=== PATIENT | male | born 1945 | race Caucasian/White ===

== ENCOUNTER → 2024-09-18 | Outpatient (CLI) | payer MEDICARE, BC, SELFPAY ==
[2024-09-18 08:25] LABS: Basophils % (Auto) 1 % (0-2.5); Eosinophils # (Auto) 0.1 Thou/mm3 (0.0-0.5); Eosinophils % (Auto) 2 % (0-10); Hematocrit 37.8 % (41.0-53.0); Hemoglobin 12.8 g/dL (13.5-16.0); Immature Granulocytes % (Auto) 0 % (0-0); Immature Granulocytes Auto 0.01 Thou/mm3 (0.00-0.00); Lymphocytes % (Auto) 20 % (10-50); Mean Corpuscular HGB Conc 33.9 g/dl (31.0-37.0); Mean Corpuscular Volume 89 fL (80-100); Monocytes # (Auto) 0.4 Thou/mm3 (0.0-0.8); Monocytes % (Auto) 8 % (0-12); Neutrophils # (Auto) 3.5 Thou/mm3 (1.8-7.7); Neutrophils % (Auto) 69 % (37-80); Nucleated Red Blood Cell % 0 /100 WBC (0); Platelet Count 164 Thou/mm3 (140-440); Red Blood Count 4.26 Miln/mm3 (4.50-5.90)
[2024-09-18 08:44] LABS: Prostate Specific Antigen < 0.10 ng/mL (0-4.00)
[2024-09-18 09:01] LABS: Alanine Aminotransferase 16 U/L (10-49); Albumin, Serum 4.3 gm/dL (3.4-4.8); Alkaline Phosphatase 84 U/L (46-116); Anion Gap 8 (7-16); BUN/Creatinine Ratio 13 Ratio (12-20); Bilirubin,Total 0.9 mg/dL (0.3-1.2); Blood Urea Nitrogen 16 mg/dL (9-23); Calcium 9.4 mg/dL (8.3-10.6); Calcium (Corrected) 9.4 mg/dL (8.5-10.1); Chloride 109 mMol/L (98-107); Creatinine (Component) 1.2 mg/dL (0.6-1.3); Globulin 2.1 gm/dL (2.3-3.5); Glucose 157 mg/dL (74-106); Osmolality,Calculated 289 (275-295); Potassium 4.4 mMol/L (3.4-5.1); Sodium 143 mMol/L (136-145); Total Protein 6.4 gm/dL (5.7-8.2); eGFR > 60 See Note
[2024-09-18 09:10] LABS: Aspartate Amino Transferase 18 U/L (0-34)
== END | disposition home or self-care (01) ==
LOC: SCTO 07:50
PROVIDERS: PCP Internal Medicine; Referring Provider Internal Medicine Hematology & Oncology; Visit Provider Internal Medicine Hematology & Oncology
DX: D69.6 Thrombocytopenia, unspecified (principal); C61 Malignant neoplasm of prostate
CPT/HCPCS: 36415; 80053; 84153; 85025

== ENCOUNTER 2024-10-05 13:46 | Outpatient (RCR) | payer MEDICARE, BC, SELFPAY ==
--- NOTE | 2024-10-08 23:32 | CTCFLWUP_ITS ---
Patient: BOB GOLDMAN : 1945 Page 3 of 4 FOLLOW UP NOTE DATE OF SERVICE: 09/25/2024 NAME: BOB GOLDMAN ACCOUNT: [id number] : 1945 AGE: 79 INTERVAL HISTORY: ONCOLOGY HISTORY: DIAGNOSIS: Thrombocytopenia, unspecified [ICD10] D69.6; Malignant neoplasm of prostate [ICD10] C61 DATE OF DIAGNOSIS: STAGE/TNM: TREATMENT HISTORY: Care?Plan Start?Date Cycle Day Intent Lupron?22.5?mg?q?3?mon 04/06/2023 1 90 Palliative HISTORY OF PRESENT ILLNESS: Bob goldman is a 79-year-old male with history of localized [place] score 7 prostate cancer initially diagnosed in 2007. 05/28/2008?07/24/2008: Patient received 7200 cGy radiation to the prostate. Patient had adjuvant LHRH agonist therapy for about a year afterwards. 08/15/2018: Patient was found to have a PSA of 4.8. 07/11/2018: PSA 3.6 06/14/2018: PSA 3.8 08/15/2018: PSA 4.8 09/16/2018: Patient underwent robotic salvage radical prostatectomy and bilateral lymph node dissectio n. 11/01/2018: PSA 1.7 11/29/2018: PSA 0.7 12/05/2018: Patient was started on Xtandi. 12/20/2018: Lupron 22.5 mg IM. 03/09/2019: PSA less than 0.1. 06/13/2019: PSA less than 0.1 10/24/2019: PSA is less than 0.10. 02/14/2020: PSA less than 0.10 08/15/2020: PSA less than 0.10 02/14/2021: PSA less than 0.10. 02/18/2023: PSA less than 0.10. 04/02/2023: PSA less than 0.00. 04/16/2023: Bone scan?negative for metastatic disease to the bone. 09/27/2023: PSA less than 0.10. 12/20/2023: PSA less than 0.10. 12/26/2023:: Xtandi discontinued. 02/22/2024: Bone scan done 03/28/2024: PSA less than 0.10. OTHER MEDICAL HISTORY/CONDITIONS: FAMILY HISTORY: SOCIAL HISTORY: MEDICATIONS: 1. amlodipine - 5 mg 2. Citracal + D Slow Release - 600 mg-12.5 mcg (500 unit) 1 tab one tab po twice a day 3. docusate sodium - 50 mg Daily 4. Paradise-C - 2,000 Units Daily 5. multivitamin - 1 tab Daily 6. zolpidem - 12.5 mg 1 tab Every day before sleep Medications Last Reconciled by Angie Pantoja MA on 09/25/2024 ALLERGIES: No Known Drug Allergies REVIEW OF SYSTEMS: A complete 14-point review of systems was performed and is negative except as noted in interval histo ry. PHYSICAL EXAMINATION: VITAL SIGNS: Temperature?98.2, B/P?153/82, Oxygen?Saturation?95% Weight?167?lbs PAIN: 0 - No pain ECOG Performance Status: 0 - Asymptomatic and fully active GENERAL APPEARANCE: Appears well, in no apparent distress, appropriately interactive. HEENT: Normocephalic, no temporal wasting, normal conjunctiva, no scleral icterus, normal hearing, li ps without lesions, neck normal range of motion. CARDIOVASCULAR: Not assessed. PULMONARY: Normal respiratory effort, no respiratory distress or use of accessory muscles, speaking i n full sentences, no tachypnea. EXTREMITIES: No pedal edema or cyanosis. SKIN: Normal skin appearance. NEUROLOGIC: Alert and oriented x4. PSHYCHIATRIC: Appropriate affect, mood normal, behavior normal, intact thought and speech. LABORATORY DATA: I have personally reviewed and interpreted each of the patient?s relevant lab tests, abnormal finding s are below: Date 09/18/24 ??GLUCOSE,RANDOM?(mg/dL) 157?H ??BLOOD?UREA?NITROGEN?(mg/dL) 16 ??CREATININE?(mg/dL) 1.20 ??SODIUM?(mmol/L) 143 ??POTASSIUM?(mmol/L) 4.4 ??CHLORIDE?(mmol/L) 109?H ??CrCl?(CandG)?(ml/min) 54.51 ??AST/SGOT?(Unit/L) 18 ??ALT/SGPT?(Unit/L) 16 ??ALKALINE?PHOSPHATASE?(Unit/L) 84 ??BILIRUBIN,?TOTAL?(mg/dL) 0.9 ??PROTEIN?TOTAL?(gm/dl) 6.4 ??ALBUMIN,?SERUM?(gm/dl) 4.3 ??GLOBULIN?(gm/dl) 2.1?L ??ALBUMIN/GLOBULIN?RATIO 2.0 ??CALCIUM,?SERUM?(mg/dL) 9.4 ??CALCIUM?SERUM?(CORRECTED)?(mg/dL) 9.4 ASSESSMENT/PLAN: Mr. Goldman is clinically doing well without any complaints. Currently he is on single agent Lupron. T olerating Lupron very well without any significant side effects PSA has been steadily less than 0.10. Recent bone density test done on 02/22/2024 is negative for metastatic disease. 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 Surgical p athology sample showed positive margins as well as lymphovascular and perineural invasion patient als o had radiation to the prostate. I recommended discontinuing Lupron. I will see him back in clinic in 6 months with CBC, CMP as well as PSA done prior to the visit.. CBC CMP PSA RETURN TO CLINIC: RTC in 6 months BILLING AND COMPLIANCE: I reviewed external records from providers outside my specialty as summarized above. I spent a total of 50 minutes on this patient?s care on the day of their visit excluding time spent related to any bi lled procedures. This time includes time spent with the patient as well as time spent documenting in the medical record, reviewing patients records and tests, obtaining history, placing orders, communi cating with other healthcare professionals, counseling the patient, family or caregiver, and/or care coordination for the diagnoses above. Electronically Signed by: Anmol Bergman MD T: 11:30 PM CC: Sunitha?[place]?MD PARVEEN?Ida?Ida?Jerald KNOX?Elisabet? PCP: Sunitha Deras Referring: Sunitha Deras This document was completed utilizing speech recognition software. Grammatical errors, random word in sertions, pronoun errors, and incomplete sentences are an occasional consequence of this system due t o software limitations, ambient noise, and hardware issues. Any formal questions or concerns about th e content, text or information contained within the body of this dictation should be directly address ed to the provider for clarification.
== END 2024-10-10 23:59 | disposition home or self-care (01) ==
LOC: SCTC 13:46
PROVIDERS: PCP Internal Medicine; Referring Provider Internal Medicine; Visit Provider Internal Medicine Hematology & Oncology
DX: Z51.11 Encounter for antineoplastic chemotherapy (principal); C61 Malignant neoplasm of prostate; Z90.79 Acquired absence of other genital organ(s); D69.6 Thrombocytopenia, unspecified
CPT/HCPCS: 96402; 99212; J9217; G0463

== ENCOUNTER → 2024-11-07 | Outpatient (CLI) | payer MEDICARE, BC, SELFPAY ==
[2024-11-07 15:50] LABS: Glucose Estimated Average 128 mg/dL (80-131); Hemoglobin A1C 6.1 % Hgb (4.8-6.0)
[2024-11-07 15:58] LABS: Alanine Aminotransferase 19 U/L (10-49); Albumin, Serum 4.5 gm/dL (3.4-4.8); Albumin/Globulin Ratio 2.1 (1.2-2.2); Alkaline Phosphatase 84 U/L (46-116); Anion Gap 8 (7-16); Aspartate Amino Transferase 19 U/L (0-34); BUN/Creatinine Ratio 11 Ratio (12-20); Bilirubin,Total 0.8 mg/dL (0.3-1.2); Blood Urea Nitrogen 16 mg/dL (9-23); Calcium 9.3 mg/dL (8.3-10.6); Calcium (Corrected) 9.3 mg/dL (8.5-10.1); Carbon Dioxide 27.8 mMol/L (20.0-31.0); Chloride 104 mMol/L (98-107); Cholesterol 143 mg/dL (132-200); Creatinine (Component) 1.4 mg/dL (0.6-1.3); Globulin 2.1 gm/dL (2.3-3.5); Glucose 157 mg/dL (74-106); HDL Cholesterol 47 mg/dL (40-60); LDL Cholesterol,Calculated 49 mg/dL (0-130); Osmolality,Calculated 283 (275-295); Potassium 4.3 mMol/L (3.4-5.1); Sodium 140 mMol/L (136-145); Total Protein 6.6 gm/dL (5.7-8.2); Triglycerides 237 mg/dL (30-150); eGFR 52 See Note
== END | disposition home or self-care (01) ==
LOC: COPL 14:31
PROVIDERS: PCP Internal Medicine; Referring Provider Internal Medicine; Visit Provider Internal Medicine
DX: E11.9 Type 2 diabetes mellitus without complications (principal); E78.5 Hyperlipidemia, unspecified; I10 Essential (primary) hypertension
CPT/HCPCS: 36415; 80053; 80061; 81001; 82043; 82570; 83036

== ENCOUNTER → 2024-11-30 | Outpatient (CLI) | payer BC, SELFPAY ==
[2024-11-30 09:44] LABS: Basophils # (Auto) 0.1 Thou/mm3 (0.0-0.2); Basophils % (Auto) 1 % (0-2.5); Eosinophils # (Auto) 0.1 Thou/mm3 (0.0-0.5); Eosinophils % (Auto) 3 % (0-10); Hematocrit 36.7 % (41.0-53.0); Hemoglobin 12.7 g/dL (13.5-16.0); Immature Granulocytes % (Auto) 0 % (0-0); Immature Granulocytes Auto 0.01 Thou/mm3 (0.00-0.00); Lymphocytes % (Auto) 21 % (10-50); Mean Corpuscular HGB Conc 34.6 g/dl (31.0-37.0); Mean Corpuscular Hemoglobin 30.2 pg (25.0-35.0); Mean Corpuscular Volume 87 fL (80-100); Monocytes # (Auto) 0.4 Thou/mm3 (0.0-0.8); Monocytes % (Auto) 7 % (0-12); Neutrophils # (Auto) 3.4 Thou/mm3 (1.8-7.7); Neutrophils % (Auto) 68 % (37-80); Nucleated Red Blood Cell % 0 /100 WBC (0); Platelet Count 172 Thou/mm3 (140-440); Red Blood Count 4.21 Miln/mm3 (4.50-5.90)
[2024-11-30 09:59] LABS: Prostate Specific Antigen < 0.10 ng/mL (0-4.00)
[2024-11-30 10:16] LABS: Alanine Aminotransferase 16 U/L (10-49); Albumin/Globulin Ratio 1.8 (1.2-2.2); Alkaline Phosphatase 81 U/L (46-116); Anion Gap 6 (7-16); Aspartate Amino Transferase 18 U/L (0-34); BUN/Creatinine Ratio 10 Ratio (12-20); Bilirubin,Total 0.6 mg/dL (0.3-1.2); Blood Urea Nitrogen 14 mg/dL (9-23); Calcium 9.3 mg/dL (8.3-10.6); Calcium (Corrected) 9.3 mg/dL (8.5-10.1); Carbon Dioxide 27.8 mMol/L (20.0-31.0); Chloride 108 mMol/L (98-107); Creatinine (Component) 1.4 mg/dL (0.6-1.3); Globulin 2.2 gm/dL (2.3-3.5); Glucose 171 mg/dL (74-106); Osmolality,Calculated 287 (275-295); Potassium 5.2 mMol/L (3.4-5.1); Sodium 142 mMol/L (136-145); Total Protein 6.2 gm/dL (5.7-8.2); eGFR 52 See Note
== END | disposition home or self-care (01) ==
PROVIDERS: PCP Internal Medicine; Referring Provider Internal Medicine Hematology & Oncology; Visit Provider Internal Medicine Hematology & Oncology
DX: D69.6 Thrombocytopenia, unspecified (principal); C61 Malignant neoplasm of prostate
CPT/HCPCS: 36415; 80053; 84153; 85025

== ENCOUNTER 2024-12-05 10:50 | Outpatient (RCR) | payer MEDICARE, BC, SELFPAY ==
--- NOTE | 2024-12-11 09:20 | CTCFLWUP_ITS ---
Patient: BOB GOLDMAN : 1945 Page 3 of 4 FOLLOW UP NOTE DATE OF SERVICE: 12/05/2024 NAME: BOB GOLDMAN ACCOUNT: [id number] : 1945 AGE: 79 INTERVAL HISTORY: Doing well ONCOLOGY HISTORY: DIAGNOSIS: Thrombocytopenia, unspecified [ICD10] D69.6; Malignant neoplasm of prostate [ICD10] C61 Recurrent biochemical failure prostate cancer DATE OF DIAGNOSIS: 05/28/2008 STAGE/TNM: TREATMENT HISTORY: Care?Plan Start?Date Cycle Day Intent Lupron?22.5?mg?q?3?mon 04/06/2023 1 90 Palliative HISTORY OF PRESENT ILLNESS: Bob goldman is a 79-year-old male with history of localized [place] score 7 prostate cancer initially diagnosed in 2007. 05/28/2008?07/24/2008: Patient received 7200 cGy radiation to the prostate. Patient had adjuvant LHRH agonist therapy for about a year afterwards. 08/15/2018: Patient was found to have a PSA of 4.8. 07/11/2018: PSA 3.6 06/14/2018: PSA 3.8 08/15/2018: PSA 4.8 09/16/2018: Patient underwent robotic salvage radical prostatectomy and bilateral lymph node dissection. 11/01/2018: PSA 1.7 11/29/2018: PSA 0.7 12/05/2018: Patient was started on Xtandi. 12/20/2018: Lupron 22.5 mg IM. 03/09/2019: PSA less than 0.1. 06/13/2019: PSA less than 0.1 10/24/2019: PSA is less than 0.10. 02/14/2020: PSA less than 0.10 08/15/2020: PSA less than 0.10 02/14/2021: PSA less than 0.10. 02/18/2023: PSA less than 0.10. 04/02/2023: PSA less than 0.00. 04/16/2023: Bone scan?negative for metastatic disease to the bone. 09/27/2023: PSA less than 0.10. 12/20/2023: PSA less than 0.10. 12/26/2023:: Xtandi discontinued. 02/22/2024: Bone scan done 03/28/2024: PSA less than 0.10. OTHER MEDICAL HISTORY/CONDITIONS: FAMILY HISTORY: SOCIAL HISTORY: MEDICATIONS: 1. amlodipine - 5 mg 2. Citracal + D Slow Release - 600 mg-12.5 mcg (500 unit) 1 tab one tab po twice a day 3. docusate sodium - 50 mg Daily 4. Paradise-C - 2,000 Units Daily 5. multivitamin - 1 tab Daily 6. zolpidem - 12.5 mg 1 tab Every day before sleep Medications Last Reconciled by Angie Pantoja MA on 12/05/2024 ALLERGIES: No Known Drug Allergies REVIEW OF SYSTEMS: A complete 14-point review of systems was performed and is negative except as noted in interval history. PHYSICAL EXAMINATION: VITAL SIGNS: Temperature?98.2, B/P?149/72, Oxygen?Saturation?97% Weight?167?lbs PAIN: 0 - No pain GENERAL APPEARANCE: Appears well, in no apparent distress, appropriately interactive. HEENT: Normocephalic, no temporal wasting, normal conjunctiva, no scleral icterus, normal hearing, lips without lesions, neck normal range of motion. CARDIOVASCULAR: Not assessed. PULMONARY: Normal respiratory effort, no respiratory distress or use of accessory muscles, speaking in full sentences, no tachypnea. EXTREMITIES: No pedal edema or cyanosis. SKIN: Normal skin appearance. NEUROLOGIC: Alert and oriented x4. PSHYCHIATRIC: Appropriate affect, mood normal, behavior normal, intact thought and speech. LABORATORY DATA: I have personally reviewed and interpreted each of the patient?s relevant lab tests, abnormal findings are below: Date 11/30/24 ??GLUCOSE,RANDOM?(mg/dL) 171?H ??BLOOD?UREA?NITROGEN?(mg/dL) 14 ??CREATININE?(mg/dL) 1.40?H ??SODIUM?(mmol/L) 142 ??POTASSIUM?(mmol/L) 5.2?H ??CHLORIDE?(mmol/L) 108?H ??CrCl?(CandG)?(ml/min) 47.80 ??AST/SGOT?(Unit/L) 18 ??ALT/SGPT?(Unit/L) 16 ??ALKALINE?PHOSPHATASE?(Unit/L) 81 ??BILIRUBIN,?TOTAL?(mg/dL) 0.6 ??PROTEIN?TOTAL?(gm/dl) 6.2 ??ALBUMIN,?SERUM?(gm/dl) 4.0 ??GLOBULIN?(gm/dl) 2.2?L ??ALBUMIN/GLOBULIN?RATIO 1.8 ??CALCIUM,?SERUM?(mg/dL) 9.3 ??CALCIUM?SERUM?(CORRECTED)?(mg/dL) 9.3 ASSESSMENT/PLAN: Mr. Goldman is clinically doing well without any complaints. Currently he is on single agent Lupron. Tolerating Lupron very well without any significant side effects PSA has been steadily less than 0.10. Recent bone density test done on 02/22/2024 is negative for metastatic disease. 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 Surgical pathology sample showed positive margins as well as lymphovascular and perineural invasion patient also had radiation to the prostate. I recommended discontinuing Lupron. I will see him back in clinic in 6 months with CBC, CMP as well as PSA done prior to the visit.. CBC CMP PSA ORDERS: Cbc,cmp,psa RETURN TO CLINIC: 6 [facility] BILLING AND COMPLIANCE: I reviewed external records from providers outside my specialty as summarized above. I spent a total of 50 minutes on this patient?s care on the day of their visit excluding time spent related to any billed procedures. This time includes time spent with the patient as well as time spent documenting in the medical record, reviewing patients records and tests, obtaining history, placing orders, communicating with other healthcare professionals, counseling the patient, family or caregiver, and/or care coordination for the diagnoses above. Electronically Signed by: Anmol Bergman MD T: 9:18 AM CC: Sunitha?[place]?MD PARVEEN?Ida?Ida?Jerald KNOX?Elisabet? PCP: Sunitha Deras Referring: Sunitha Deras This document was completed utilizing speech recognition software. Grammatical errors, random word insertions, pronoun errors, and incomplete sentences are an occasional consequence of this system due to software limitations, ambient noise, and hardware issues. Any formal questions or concerns about the content, text or information contained within the body of this dictation should be directly addressed to the provider for clarification.
== END 2024-12-08 23:59 | disposition home or self-care (01) ==
LOC: SCTC 10:50
PROVIDERS: PCP Internal Medicine; Referring Provider Internal Medicine; Visit Provider Internal Medicine Hematology & Oncology
DX: C61 Malignant neoplasm of prostate (principal); Z79.818 Long term (current) use of other agents affecting estrogen receptors and estrogen levels; Z90.79 Acquired absence of other genital organ(s); Z92.3 Personal history of irradiation
CPT/HCPCS: 99212; G0463

== ENCOUNTER → 2025-01-02 | Outpatient (CLI) | payer MEDICARE, BC, SELFPAY ==
[2025-01-02 11:32] LABS: Basophils # (Auto) 0.1 Thou/mm3 (0.0-0.2); Basophils % (Auto) 1 % (0-2.5); Eosinophils # (Auto) 0.1 Thou/mm3 (0.0-0.5); Eosinophils % (Auto) 1 % (0-10); Hematocrit 37.1 % (41.0-53.0); Hemoglobin 12.7 g/dL (13.5-16.0); Immature Granulocytes % (Auto) 0 % (0-0); Immature Granulocytes Auto 0.01 Thou/mm3 (0.00-0.00); Lymphocytes # (Auto) 0.9 Thou/mm3 (1.0-4.8); Lymphocytes % (Auto) 18 % (10-50); Mean Corpuscular HGB Conc 34.2 g/dl (31.0-37.0); Mean Corpuscular Volume 88 fL (80-100); Monocytes # (Auto) 0.4 Thou/mm3 (0.0-0.8); Monocytes % (Auto) 7 % (0-12); Neutrophils # (Auto) 3.7 Thou/mm3 (1.8-7.7); Neutrophils % (Auto) 73 % (37-80); Nucleated Red Blood Cell % 0 /100 WBC (0); Platelet Count 182 Thou/mm3 (140-440); RDW Standard Deviation 44.4 fL (35.1-43.9); Red Blood Count 4.23 Miln/mm3 (4.50-5.90); White Blood Count 5.2 Thou/mm3 (3.8-10.6)
[2025-01-02 15:55] LABS: Glucose Estimated Average 134 mg/dL (80-131); Hemoglobin A1C 6.3 % Hgb (4.8-6.0)
[2025-01-02 20:45] LABS: Alanine Aminotransferase 18 U/L (10-49); Albumin, Serum 4.3 gm/dL (3.4-4.8); Albumin/Globulin Ratio 1.7 (1.2-2.2); Alkaline Phosphatase 80 U/L (46-116); Anion Gap 5 (7-16); Aspartate Amino Transferase 18 U/L (0-34); BUN/Creatinine Ratio 15 Ratio (12-20); Blood Urea Nitrogen 21 mg/dL (9-23); Calcium 9.8 mg/dL (8.3-10.6); Calcium (Corrected) 9.8 mg/dL (8.5-10.1); Cardiac Risk Estimate 4.6 RATIO (4.0-6.7); Chloride 107 mMol/L (98-107); Cholesterol 221 mg/dL (132-200); Creatinine (Component) 1.4 mg/dL (0.6-1.3); Globulin 2.6 gm/dL (2.3-3.5); Glucose 195 mg/dL (74-106); HDL Cholesterol 48 mg/dL (40-60); LDL Cholesterol,Calculated 140 mg/dL (0-130); Osmolality,Calculated 285 (275-295); Potassium 5.3 mMol/L (3.4-5.1); Sodium 139 mMol/L (136-145); Thyroid Stimulating Hormone 0.86 uIU/mL (0.55-4.78); Total Protein 6.9 gm/dL (5.7-8.2); Triglycerides 167 mg/dL (30-150); eGFR 51 See Note
== END | disposition home or self-care (01) ==
LOC: COPL 10:18
PROVIDERS: PCP Internal Medicine; Referring Provider Internal Medicine; Visit Provider Internal Medicine
DX: E11.9 Type 2 diabetes mellitus without complications (principal); I10 Essential (primary) hypertension; E78.5 Hyperlipidemia, unspecified
CPT/HCPCS: 36415; 80053; 80061; 81001; 82043; 82570; 83036; 84443; 85025

== ENCOUNTER 2025-01-03 14:13 | Outpatient (RCR) | payer MEDICARE, BC, SELFPAY | END 2025-01-08 23:59 | disposition home or self-care (01) | LOC: SCTC 14:13 | PROVIDERS: PCP Internal Medicine; Referring Provider Internal Medicine Hematology & Oncology; Visit Provider Internal Medicine Hematology & Oncology | DX: Z51.11 Encounter for antineoplastic chemotherapy (principal); C61 Malignant neoplasm of prostate; Z90.79 Acquired absence of other genital organ(s); Z79.818 Long term (current) use of other agents affecting estrogen receptors and estrogen levels | CPT/HCPCS: 96402; J9217 ==

== ENCOUNTER → 2025-03-02 | Outpatient (CLI) | payer MEDICARE, BC, SELFPAY ==
[2025-03-02 10:36] LABS: Basophils # (Auto) 0.1 Thou/mm3 (0.0-0.2); Basophils % (Auto) 1 % (0-2.5); Eosinophils # (Auto) 0.1 Thou/mm3 (0.0-0.5); Eosinophils % (Auto) 1 % (0-10); Hemoglobin 13.3 g/dL (13.5-16.0); Immature Granulocytes % (Auto) 0 % (0-0); Immature Granulocytes Auto 0.02 Thou/mm3 (0.00-0.00); Lymphocytes # (Auto) 0.7 Thou/mm3 (1.0-4.8); Lymphocytes % (Auto) 12 % (10-50); Mean Corpuscular HGB Conc 34.1 g/dl (31.0-37.0); Mean Corpuscular Hemoglobin 29.8 pg (25.0-35.0); Mean Corpuscular Volume 87 fL (80-100); Monocytes # (Auto) 0.3 Thou/mm3 (0.0-0.8); Monocytes % (Auto) 5 % (0-12); Neutrophils # (Auto) 4.6 Thou/mm3 (1.8-7.7); Neutrophils % (Auto) 80 % (37-80); Nucleated Red Blood Cell % 0 /100 WBC (0); Platelet Count 172 Thou/mm3 (140-440); Red Blood Count 4.46 Miln/mm3 (4.50-5.90); White Blood Count 5.8 Thou/mm3 (3.8-10.6)
[2025-03-02 10:45] LABS: Prostate Specific Antigen < 0.10 ng/mL (0-4.00)
[2025-03-02 11:04] LABS: Alanine Aminotransferase 11 U/L (10-49); Albumin, Serum 4.4 gm/dL (3.4-4.8); Albumin/Globulin Ratio 1.8 (1.2-2.2); Alkaline Phosphatase 73 U/L (46-116); Anion Gap 8 (7-16); Aspartate Amino Transferase 15 U/L (0-34); BUN/Creatinine Ratio 16 Ratio (12-20); Bilirubin,Total 0.7 mg/dL (0.3-1.2); Blood Urea Nitrogen 24 mg/dL (9-23); Calcium 9.1 mg/dL (8.3-10.6); Calcium (Corrected) 9.1 mg/dL (8.5-10.1); Carbon Dioxide 26.8 mMol/L (20.0-31.0); Chloride 108 mMol/L (98-107); Creatinine (Component) 1.5 mg/dL (0.6-1.3); Globulin 2.5 gm/dL (2.3-3.5); Glucose 191 mg/dL (74-106); Osmolality,Calculated 293 (275-295); Potassium 5.4 mMol/L (3.4-5.1); Sodium 143 mMol/L (136-145); Total Protein 6.9 gm/dL (5.7-8.2); eGFR 47 See Note
== END | disposition home or self-care (01) ==
LOC: SCTO 09:28
PROVIDERS: PCP Internal Medicine; Referring Provider Internal Medicine Hematology & Oncology; Visit Provider Internal Medicine Hematology & Oncology
DX: D69.6 Thrombocytopenia, unspecified (principal); C61 Malignant neoplasm of prostate
CPT/HCPCS: 36415; 80053; 84153; 85025

== ENCOUNTER 2025-03-07 14:09 | Outpatient (RCR) | payer MEDICARE, BC, SELFPAY ==
--- NOTE | 2025-03-11 21:19 | CTCFLWUP_ITS ---
Patient: BOB GOLDMAN : 1945 Page 4 of 6 FOLLOW UP NOTE DATE OF SERVICE: 03/07/2025 NAME: BOB GOLDMAN ACCOUNT: [id number] : 1945 AGE: 80 INTERVAL HISTORY: Subjective: Chief Complaint Follow-up for stage 3B, grade 4 prostate cancer status post prostatectomy History of Present Illness Joss Rojas, a male patient with a history of stage 3B, grade 4 prostate cancer status post prostatectomy, presents for follow-up. The patient reports no specific complaints during this visit. Mr. Rojas's prostate cancer appears to be stable, with negative surgical margins and a current PSA level less than 0.10. He is continuing treatment with Lupron. The patient mentions no new symptoms or concerns related to his prostate cancer or its treatment. The patient acknowledges a need to increase his water intake, as suggested by the physician due to signs of dehydration. He also reports consuming caffeinated beverages with artificial sweeteners, which he recognizes may not be ideal for his health. Medications and Supplements - Lupron Objective: Laboratory, Imaging, and Diagnostic Test Results - Date: WedMar 07 2025 - Hemoglobin: 13.3 g/dL (low) - Creatinine: Elevated (specific value not provided) - Potassium: High (specific value not provided) - Chloride: High (specific value not provided) - eGFR: 47 mL/min/1.73m? (reference range: should be 60) - PSA: < 0.10 ng/mL ONCOLOGY HISTORY: DIAGNOSIS: Thrombocytopenia, unspecified [ICD10] D69.6; Malignant neoplasm of prostate [ICD10] C61 Recurrent biochemical failure prostate cancer DATE OF DIAGNOSIS: 05/28/2008 STAGE/TNM: TREATMENT HISTORY: Care?Plan Start?Date Cycle Day Intent Lupron?22.5?mg?q?3?mon 04/06/2023 1 90 Palliative HISTORY OF PRESENT ILLNESS: Bob goldman is a 80-year-old male with history of localized [place] score 7 prostate cancer initially diagnosed in 2007. 05/28/2008?07/24/2008: Patient received 7200 cGy radiation to the prostate. Patient had adjuvant LHRH agonist therapy for about a year afterwards. 08/15/2018: Patient was found to have a PSA of 4.8. 07/11/2018: PSA 3.6 06/14/2018: PSA 3.8 08/15/2018: PSA 4.8 09/16/2018: Patient underwent robotic salvage radical prostatectomy and bilateral lymph node dissection. 11/01/2018: PSA 1.7 11/29/2018: PSA 0.7 12/05/2018: Patient was started on Xtandi. 12/20/2018: Lupron 22.5 mg IM. 03/09/2019: PSA less than 0.1. 06/13/2019: PSA less than 0.1 10/24/2019: PSA is less than 0.10. 02/14/2020: PSA less than 0.10 08/15/2020: PSA less than 0.10 02/14/2021: PSA less than 0.10. 02/18/2023: PSA less than 0.10. 04/02/2023: PSA less than 0.00. 04/16/2023: Bone scan?negative for metastatic disease to the bone. 09/27/2023: PSA less than 0.10. 12/20/2023: PSA less than 0.10. 12/26/2023:: Xtandi discontinued. 02/22/2024: Bone scan done 03/28/2024: PSA less than 0.10. OTHER MEDICAL HISTORY/CONDITIONS: FAMILY HISTORY: SOCIAL HISTORY: MEDICATIONS: 1. amlodipine - 5 mg 2. Citracal + D Slow Release - 600 mg-12.5 mcg (500 unit) 1 tab one tab po twice a day 3. docusate sodium - 50 mg Daily 4. Paradise-C - 2,000 Units Daily 5. multivitamin - 1 tab Daily 6. zolpidem - 12.5 mg 1 tab Every day before sleep Medications Last Reconciled by Vera Arellano MA on 03/07/2025 ALLERGIES: No Known Drug Allergies REVIEW OF SYSTEMS: A complete 14-point review of systems was performed and is negative except as noted in interval history. PHYSICAL EXAMINATION: VITAL SIGNS: Temperature?99, B/P?117/90, Oxygen?Saturation?97% Weight?162?lbs PAIN: 0 - No pain ECOG Performance Status: 0 - Asymptomatic and fully active GENERAL APPEARANCE: Appears well, in no apparent distress, appropriately interactive. HEENT: Normocephalic, no temporal wasting, normal conjunctiva, no scleral icterus, normal hearing, lips without lesions, neck normal range of motion. CARDIOVASCULAR: Not assessed. PULMONARY: Normal respiratory effort, no respiratory distress or use of accessory muscles, speaking in full sentences, no tachypnea. EXTREMITIES: No pedal edema or cyanosis. SKIN: Normal skin appearance. NEUROLOGIC: Alert and oriented x4. PSHYCHIATRIC: Appropriate affect, mood normal, behavior normal, intact thought and speech. LABORATORY DATA: I have personally reviewed and interpreted each of the patient?s relevant lab tests, abnormal findings are below: Date 01/02/25 03/02/25 ??WHITE?BLOOD?COUNT?(Thou/mm3) 5.2 5.8 ??RED?BLOOD?COUNT?(Miln/mm3) 4.23?L 4.46?L ??HEMOGLOBIN?(gm/dl) 12.7?L 13.3?L ??HEMATOCRIT?(%) 37.1?L 39.0?L ??PLATELET?COUNT?(Thou/mm3) 182 172 ??NEUTROPHILS?%,?AUTO?(%) 73 80 ??LYMPH?%,?AUTO?(%) 18 12 ??NEUTROPHILS,?AUTO?(Thou/mm3) 3.7 4.6 ??GLUCOSE,RANDOM?(mg/dL) 195?H 191?H ??BLOOD?UREA?NITROGEN?(mg/dL) 21 24?H ??CREATININE?(mg/dL) 1.40?H 1.50?H ??SODIUM?(mmol/L) 139 143 ??POTASSIUM?(mmol/L) 5.3?H 5.4?H ??CHLORIDE?(mmol/L) 107 108?H ??CrCl?(CandG)?(ml/min) 46.59 44.16 ??AST/SGOT?(Unit/L) 18 15 ??ALT/SGPT?(Unit/L) 18 11 ??ALKALINE?PHOSPHATASE?(Unit/L) 80 73 ??BILIRUBIN,?TOTAL?(mg/dL) 1.0 0.7 ??PROTEIN?TOTAL?(gm/dl) 6.9 6.9 ??ALBUMIN,?SERUM?(gm/dl) 4.3 4.4 ??GLOBULIN?(gm/dl) 2.6 2.5 ??ALBUMIN/GLOBULIN?RATIO 1.7 1.8 ??CALCIUM,?SERUM?(mg/dL) 9.8 9.1 ??CALCIUM?SERUM?(CORRECTED)?(mg/dL) 9.8 9.1 ASSESSMENT/PLAN: Assessment and Plan: Joss Rojas, male patient with stage 3B, grade 4 prostate cancer status post prostatectomy, presenting for follow-up. Prostate Cancer bone density test done on 02/22/2024 is negative for metastatic disease. 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 Surgical pathology sample showed positive margins as well as lymphovascular and perineural invasion patient also had radiation to the prostate. Assessment: Patient with history of stage 3B, grade 4 prostate cancer who underwent prostatectomy. Surgical margins were negative. Current PSA is less than 0.10, indicating good disease control. Patient is on Lupron therapy. Plan: - has been on Lupron therapy since 2019 .should stop Lupron and monitor PSA (dose and frequency not specified) - Monitor PSA levels Anemia Assessment: Hemoglobin is slightly low at 13.3, likely secondary to Lupron therapy for prostate cancer. Plan: - Continue to monitor hemoglobin levels Acute Kidney Injury Assessment: Creatinine is elevated with an estimated GFR of 47 (normal should be 60). Potassium and chloride levels are high. These findings are likely due to dehydration. Plan: - Increase fluid intake, especially water - Avoid caffeine and artificial sweeteners - Monitor renal function Hyperglycemia Assessment: Blood sugar levels are increasing, though specific values were not provided. Plan: - Monitor blood sugar levels - Patient education on dietary modifications CBC CMP PSA No Lupron recommended RETURN TO CLINIC: 2 months BILLING AND COMPLIANCE: I reviewed external records from providers outside my specialty as summarized above. I spent a total of 50 minutes on this patient?s care on the day of their visit excluding time spent related to any billed procedures. This time includes time spent with the patient as well as time spent documenting in the medical record, reviewing patients records and tests, obtaining history, placing orders, communicating with other healthcare professionals, counseling the patient, family or caregiver, and/or care coordination for the diagnoses above. Electronically Signed by: {Object.Sanct_ID*[email or web address]@M}, {Object.Sanct_ID*PnP.Suffix@U} D: {Object.Sanct_Date} T: {Object.Sanct_Time} CC: Sunitha?[place],?MD PARVEEN?Ida?Ida,?Jerald KNOX?Elisabet? PCP: Sunitha Deras Referring: Sunitha Deras This document was completed utilizing speech recognition software. Grammatical errors, random word insertions, pronoun errors, and incomplete sentences are an occasional consequence of this system due to software limitations, ambient noise, and hardware issues. Any formal questions or concerns about the content, text or information contained within the body of this dictation should be directly addressed to the provider for clarification.
== END 2025-03-10 23:59 | disposition home or self-care (01) ==
LOC: SCTC 14:09
PROVIDERS: PCP Internal Medicine; Referring Provider Internal Medicine; Visit Provider Internal Medicine Hematology & Oncology
DX: C61 Malignant neoplasm of prostate (principal); D69.6 Thrombocytopenia, unspecified; Z90.79 Acquired absence of other genital organ(s); Z79.818 Long term (current) use of other agents affecting estrogen receptors and estrogen levels; R73.9 Hyperglycemia, unspecified
CPT/HCPCS: 99212; G0463

== ENCOUNTER → 2025-04-03 | Outpatient (CLI) | payer MEDICARE, BC, SELFPAY ==
[2025-04-03 14:22] LABS: Basophils # (Auto) 0.1 Thou/mm3 (0.0-0.2); Basophils % (Auto) 1 % (0-2.5); Eosinophils # (Auto) 0.1 Thou/mm3 (0.0-0.5); Eosinophils % (Auto) 1 % (0-10); Hemoglobin 12.6 g/dL (13.5-16.0); Immature Granulocytes % (Auto) 0 % (0-0); Immature Granulocytes Auto 0.01 Thou/mm3 (0.00-0.00); Lymphocytes # (Auto) 1.1 Thou/mm3 (1.0-4.8); Lymphocytes % (Auto) 14 % (10-50); Mean Corpuscular Hemoglobin 30.7 pg (25.0-35.0); Mean Corpuscular Volume 88 fL (80-100); Monocytes # (Auto) 0.4 Thou/mm3 (0.0-0.8); Monocytes % (Auto) 5 % (0-12); Neutrophils # (Auto) 6.3 Thou/mm3 (1.8-7.7); Neutrophils % (Auto) 79 % (37-80); Nucleated Red Blood Cell % 0 /100 WBC (0); Platelet Count 199 Thou/mm3 (140-440); RDW Standard Deviation 42.5 fL (35.1-43.9); White Blood Count 7.9 Thou/mm3 (3.8-10.6)
[2025-04-03 14:36] LABS: Glucose Estimated Average 146 mg/dL (80-131); Hemoglobin A1C 6.7 % Hgb (4.8-6.0)
[2025-04-03 14:53] LABS: Alanine Aminotransferase 12 U/L (10-49); Albumin, Serum 4.1 gm/dL (3.4-4.8); Albumin/Globulin Ratio 2.1 (1.2-2.2); Alkaline Phosphatase 76 U/L (46-116); Anion Gap 7 (7-16); Aspartate Amino Transferase 17 U/L (0-34); BUN/Creatinine Ratio 11 Ratio (12-20); Bilirubin,Total 0.6 mg/dL (0.3-1.2); Blood Urea Nitrogen 17 mg/dL (9-23); Carbon Dioxide 28.4 mMol/L (20.0-31.0); Chloride 106 mMol/L (98-107); Cholesterol 199 mg/dL (132-200); Creatinine (Component) 1.6 mg/dL (0.6-1.3); Glucose 117 mg/dL (74-106); HDL Cholesterol 40 mg/dL (40-60); LDL Cholesterol,Calculated 91 mg/dL (0-130); Osmolality,Calculated 283 (275-295); Potassium 4.6 mMol/L (3.4-5.1); Sodium 141 mMol/L (136-145); Thyroid Stimulating Hormone 1.15 uIU/mL (0.55-4.78); Total Protein 6.1 gm/dL (5.7-8.2); Triglycerides 340 mg/dL (30-150); eGFR 44 See Note
== END | disposition home or self-care (01) ==
LOC: COPL 13:56
PROVIDERS: PCP Internal Medicine; Referring Provider Internal Medicine; Visit Provider Internal Medicine
DX: E11.9 Type 2 diabetes mellitus without complications (principal); I10 Essential (primary) hypertension; E78.5 Hyperlipidemia, unspecified
CPT/HCPCS: 36415; 80053; 80061; 81001; 82043; 82570; 83036; 84443; 85025